=== PATIENT | female | born 1985 | race Caucasian/White ===

== ENCOUNTER → 2018-02-08 | Outpatient (CLI) | payer OTHER ==
[~2018-02-08] MED LIST: CITA20 PO; Celexa40 MG PO; DOCU100 PO; IBUP800 PO; MONT10T PO; Metformin HCl500 MG PO; PROM25 PO; Verotin-Gr Cap1 EACH PO
[2018-02-10 15:08] LABS: HPV 16 Negative (Negative); HPV 18 Negative (Negative); HPV OTHER HR TYPES Negative (Negative)
== END ==
LOC: LAB SHORT 17:03 → LAB 17:03
PROVIDERS: Nurse Practitioner Family
DX: Z00.00 Encounter for general adult medical examination without abnormal findings (principal)
CPT/HCPCS: 87624; G0145

== ENCOUNTER 2022-11-21 07:46 | Day surgery (SDC) | payer OTHER ==
[~2022-11-21] VITALS: Ht 170.2 cm; Wt 110.0 kg
[2022-11-21] MEDS ORDERED: BUSP10 PO (08:31)
[2022-11-21] MEDS ORDERED: CELEXA40 M1 PO (08:31)
--- NOTE | 2022-11-21 08:53 | NUR ---
11/21/22 0853 JAYY QUINTANA PT REPORTS ANXIETY. VSS. PRE-OP TEACHING COMPLETED. CALL LIGHT WITHIN REACH.
--- NOTE | 2022-11-21 10:12 | NUR ---
11/21/22 1012 Loren Del Real 1MG OF EPI (1MG/ML) ADDED TO THE FIRST BAG OF FLUIDS FOR IRRIGATION. 20 ML OF ROPIVACAINE 0.5% MIXED AND VERIFIED WITH 0.1ML OF EPI (1MG/ML) TO MAKE ROPIVACAINE 0.5% WITH EPI 1:200,000 FOR INJECTION AT THE OPSITE BY DR. BHAGAT. 10ML INJECTED. 3 SMALL SCABS NOTED ON OPERATIVE LEG. DR BHAGAT NOTIFIED. OK TO PROCEED.
--- NOTE | 2022-11-21 11:42 | NUR ---
11/21/[address] IN TO SPEAK WITH PT AND REGARDING SURGERY. SHOWED PT PICTURES AND GAVE EXPENATION. PT AT BEDSIDE. PT EATING AND DRINKING W/O DIFFICULTY.
[2022-11-21 11:52] VITALS: BP 158/107
== END 2022-11-21 12:11 | disposition home or self-care (01) ==
LOC: ORSCSDS 07:46
PROVIDERS: Orthopaedic Surgery
PROC: 0SBD4ZZ Excision of Left Knee Joint, Percutaneous Endoscopic Approach (ICD-10-PCS; principal; 2022-11-21 09:15)
DX: S83.232A Complex tear of medial meniscus, current injury, left knee, initial encounter (principal); F41.9 Anxiety disorder, unspecified; F32.A Depression, unspecified; Z79.899 Other long term (current) drug therapy; E66.9 Obesity, unspecified; Z68.38 Body mass index [BMI] 38.0-38.9, adult
CPT/HCPCS: A9270; J0171; J0690; J1885; J2704; J2795; J3010; J7120

== ENCOUNTER 2023-01-02 11:34 | Day surgery (SDC) | payer OTHER ==
[~2023-01-02] VITALS: Ht 170.2 cm; Wt 108.7 kg
[~2023-01-02 11:34] MED LIST changes: +BUSP10 PO; +CELEXA40 M1 PO
[2023-01-02] MEDS ORDERED: DULO60 (12:17)
--- NOTE | 2023-01-02 13:18 | NUR ---
01/02/23 1318 Loren Del Real 10ML OF ROPIVACAINE 0.5% MIXED AND VERIFIED WITH 0.05ML OF EPI (1MG/ML) TO MAKE ROPIVACAINE 0.5% WITH EPI 1:200,000 [facility] 1MG OF EPI (1MG/ML) ADDED TO THE FIRST BAG OF FLUID USED FOR IRRIGATION AT THE OPSITE BY DR BHAGAT.
[2023-01-02 14:18] VITALS: BP 112/75
--- NOTE | 2023-01-02 14:59 | NUR ---
01/02/23 1459 Cyndee Choudhury 1450 IV REMOVED CANNULA INTACT, PT FLETCHER WELL. IV SITE WNL. PT DENIES NAUSEA AND REPORTS PAIN 3/10 WHICH IS A TOLERABLE LEVEL FOR HER. PT EXPRESSES READINESS TO GO HOME
== END 2023-01-02 14:56 | disposition home or self-care (01) ==
LOC: ORSCSDS 11:34
PROVIDERS: Orthopaedic Surgery
PROC: 0SBC4ZZ Excision of Right Knee Joint, Percutaneous Endoscopic Approach (ICD-10-PCS; principal; 2023-01-02 12:45)
DX: S83.231A Complex tear of medial meniscus, current injury, right knee, initial encounter (principal); E66.9 Obesity, unspecified; Z68.38 Body mass index [BMI] 38.0-38.9, adult; G47.33 Obstructive sleep apnea (adult) (pediatric); F41.9 Anxiety disorder, unspecified; F32.A Depression, unspecified; Z79.899 Other long term (current) drug therapy
CPT/HCPCS: 82947; A9270; J0171; J0690; J1100; J2250; J2405; J2704; J2795; J3010; J7120

== ENCOUNTER → 2023-04-24 | Outpatient (CLI) | payer OTHER ==
[~2023-04-24] MED LIST changes: +DULO60
[2023-05-07 04:03] LABS: HPV GENOTYPE 16 Not Detected; HPV GENOTYPE 18 Not Detected; HPV HIGH RISK Not Detected; HPV SOURCE Cervical
== END ==
LOC: LAB 16:23 → LAB SHORT 16:23
PROVIDERS: Obstetrics & Gynecology
DX: Z01.419 Encounter for gynecological examination (general) (routine) without abnormal findings (principal)
CPT/HCPCS: 87624; G0123

== ENCOUNTER → 2023-04-24 | Outpatient (CLI) | payer OTHER ==
[2023-04-25 10:48] LABS: Candida species (DNA Probe) Negative (NEGATIVE); G. vaginalis (DNA Probe) Negative (NEGATIVE); T. vaginalis (DNA Probe) Negative (NEGATIVE)
== END ==
LOC: LAB 23:17 → LAB SHORT 23:17
PROVIDERS: Obstetrics & Gynecology
DX: N89.8 Other specified noninflammatory disorders of vagina (principal)
CPT/HCPCS: 87480; 87510; 87660

== ENCOUNTER 2023-11-09 08:24 | Day surgery (SDC) | payer OTHER ==
[~2023-11-09] VITALS: Ht 170.2 cm; Wt 95.4 kg
[2023-11-09] VITALS (11 sets, daily range): BP systolic 118–132; BP diastolic 78–87
[~2023-11-09 08:24] MED LIST changes: +ASHWAGANDHA300 MG PO; +CeFAZolin Sodium 2,000 MG in NS 100 ML IV SCH; +Lactated Ringer's 1,000 ML IV SCH; +METF500C PO; +WEGOVY0.5 MG/0.5 SC; +propofoL 20 ML IV ONE
[2023-11-09] MEDS ORDERED: LOSA25 PO (09:19)
[2023-11-09] MEDS ORDERED: Bupivacaine 0.5% HCl 5 MG/ML 30MLVIAL ONE (09:39)
[2023-11-09] MEDS ORDERED: Midazolam HCl 1MG / ML 2ML Vial IV ONE (10:05)
[2023-11-09] MEDS ORDERED: propofoL 20 ML IV ONE (10:20)
[2023-11-09] MEDS ORDERED: FentaNYL Citrate 50 MCG/ML 2 ML Injection ONE (10:20)
[2023-11-09] MEDS ORDERED: HYDROmorphone HCl/Pf 1MG SYR ONE (10:37)
[2023-11-09] MEDS ORDERED: Bupivacaine 0.5% Inj 10 ML Vial ONE (10:55)
[2023-11-09] MEDS ORDERED: Metoclopramide HCl 5MG / ML 2ML Vial ONE (11:00)
[2023-11-09] MEDS ORDERED: Ondansetron HCl 2 MG / ML 2ML Vial ONE (11:00)
[2023-11-09] MEDS ORDERED: ePHEDrine Sulfate 50 MG/ML 1ML Injection ONE (11:05)
[2023-11-09] MEDS ORDERED: Atropine Sulfate 0.4 MG/1 ML Vial ONE (11:05)
[2023-11-09] MEDS ORDERED: Rocuronium Bromide 10 MG/ML 5ML Injection IV ONE (11:55)
[2023-11-09] MEDS ORDERED: OxyCODONE HCL 5 MG TAB PO PRN ×2 (12:40→12:45)
[2023-11-09] MEDS ORDERED: Sugammadex Sodium 200 MG/2ML SDV (100 MG/ML) ONE (12:41)
[2023-11-09] MEDS ORDERED: DiphenhydrAMINE HCL 25 MG Cap PO PRN (12:45)
[2023-11-09] MEDS ORDERED: HYDROmorphone HCl/Pf 1MG SYR IV PRN (12:45)
[2023-11-09] MEDS ORDERED: Simethicone 80 MG Chew PO PRN (12:45)
[2023-11-09] MEDS ORDERED: Lactated Ringer's 1,000 ML IV SCH (12:50)
[2023-11-09] MEDS ORDERED: Naloxone HCl 0.4MG / ML 1ML Vial IV PRN (12:50)
[2023-11-09] MEDS ORDERED: Metoclopramide HCl 5MG / ML 2ML Vial IV PRN (12:50)
[2023-11-09] MEDS ORDERED: Ondansetron HCl 2 MG / ML 2ML Vial IV PRN (12:50)
--- NOTE | 2023-11-09 15:47 | NUR ---
DISCHARGE: DC INSTRUCTIONS GIVEN, VERBALIZED UNDERSTANDING, PT HAS VOIDED WITHOUT DIFFICULTY, TOLERABLE PAIN CONTROL W/ PO PAIN MEDS, TOLERATED REGULAR FOOD WELL, AMBULATING WITHOUT DIFFICULTY, DC'D HOME W/ SIG. OTHER, BELONGINGS GIVEN TO PT AND SIG. OTHER.
[2023-11-09] MEDS ORDERED: Ibuprofen 400 MG Tab PO SCH (16:00)
[2023-11-09] MEDS ORDERED: MetFORMIN HCl 500 mg PO SCH (17:00)
[2023-11-09] MEDS ORDERED: Ketorolac Tromethamine 30mg Vial IV SCH (18:00)
[2023-11-10] MEDS ORDERED: Polyethylene Glycol 3350 17 gm PO SCH (09:00)
[2023-11-10] MEDS ORDERED: Enoxaparin 40 MG/0.4 ML SYR SC SCH (09:00)
[2023-11-10] MEDS ORDERED: BusPIRone HCl 10 MG Tab PO SCH (09:00)
[2023-11-10] MEDS ORDERED: DULoxetine HCL 60 MG Capsule DR PO SCH (09:00)
[2023-11-10] MEDS ORDERED: Losartan Potassium 25 MG Tab PO SCH (09:00)
== END 2023-11-09 15:49 | disposition home or self-care (01) ==
LOC: ORSCMMR 08:24 → ORD 10:30 → SURS 13:14 → ORSCMMR 15:49
PROVIDERS: Obstetrics & Gynecology
PROC: 0UT7FZZ Resection of Bilateral Fallopian Tubes, Via Natural or Artificial Opening With Percutaneous Endoscopic Assistance (ICD-10-PCS; principal; 2023-11-09 10:30)
PROC: 0UT9FZZ Resection of Uterus, Via Natural or Artificial Opening With Percutaneous Endoscopic Assistance (ICD-10-PCS; principal; 2023-11-09 10:30)
DX: N93.8 Other specified abnormal uterine and vaginal bleeding (principal); N94.6 Dysmenorrhea, unspecified; E28.2 Polycystic ovarian syndrome; I10 Essential (primary) hypertension; E11.9 Type 2 diabetes mellitus without complications; J45.909 Unspecified asthma, uncomplicated; Z79.84 Long term (current) use of oral hypoglycemic drugs; Z79.899 Other long term (current) drug therapy; E66.9 Obesity, unspecified; Z68.33 Body mass index [BMI] 33.0-33.9, adult
CPT/HCPCS: 82947; 86850; 86900; 86901; 88307; A9270; J0461; J0690; J1170; J2250; J2405; J2704; J2765; J3010; J7120

== ENCOUNTER 2024-05-27 09:03 | Day surgery (SDC) | payer OTHER ==
[~2024-05-27] VITALS: Ht 170.2 cm; Wt 110.5 kg
[~2024-05-27 09:03] MED LIST changes: -CeFAZolin Sodium 2,000 MG in NS 100 ML IV SCH; +EPINEPhrine HCl 1 MG/ML 1ML Amp ONE; +LOSA25 PO; -Lactated Ringer's 1,000 ML IV SCH; +Ropivacaine 0.5% HCL/PF 5 MG/ML 30ML Vial ONE; -propofoL 20 ML IV ONE
[2024-05-27] MEDS ORDERED: Ketorolac Tromethamine 30mg Vial ONE (10:08)
[2024-05-27] MEDS ORDERED: PROG100 PO (10:11)
[2024-05-27] MEDS ORDERED: STEGLATRO5 MG PO (10:11)
[2024-05-27] MEDS ORDERED: propofoL 0 ML IV ONE (10:14)
[2024-05-27] MEDS ORDERED: LOSARTAN POTASS50 M1 PO (10:14)
[2024-05-27] MEDS ORDERED: MULVITA PO (10:14)
[2024-05-27] MEDS ORDERED: Lactated Ringer's 1,000 ML IV ONE ×2 (10:21→14:28)
[2024-05-27] MEDS ORDERED: CeFAZolin Sodium 2,000 MG VIAL ONE (10:26)
[2024-05-27] MEDS ORDERED: Sugammadex Sodium 200 MG/2ML SDV (100 MG/ML) ONE (10:52)
[2024-05-27] MEDS ORDERED: FentaNYL Citrate 50 MCG/ML 2 ML Injection ONE (10:52)
[2024-05-27] MEDS ORDERED: propofoL 20 ML IV ONE (10:52)
[2024-05-27] MEDS ORDERED: Midazolam HCl 1MG / ML 2ML Vial ONE (10:52)
[2024-05-27] MEDS ORDERED: Bupivacaine 0.5% HCl 5 MG/ML 30MLVIAL ONE (10:55)
[2024-05-27] MEDS ORDERED: Rocuronium Bromide 10 MG/ML 5ML Injection IV ONE (10:57)
[2024-05-27] MEDS ORDERED: Ondansetron HCl 2 MG / ML 2ML Vial ONE (10:57)
[2024-05-27] MEDS ORDERED: Dexamethasone Sod Phos 10 MG/ML 1ML VIAL ONE (10:57)
--- NOTE | 2024-05-27 11:31 | NUR ---
05/27/24 1131 Sharita Horan TIME OUT PERFORMED AT BEDSIDE WITH DR GA AT 1117 PRIOR TO POPLITEAL NERVE BLOCK. PT PLACED ON 2L O2 VIA N/C AND SPO2 MONITOR IN PLACE. NERVE BLOCK STARTED AT 1120 AND ENDED AT 1121. PT TOLERATED PROCEDURE WELL.
[2024-05-27] MEDS ORDERED: ePHEDrine Sulfate 50 MG/ML 1ML Injection ONE (13:13)
--- NOTE | 2024-05-27 14:06 | NUR ---
05/27/24 1406 Jt Richardson RECIEVED REPORT FROM [facility] TRAN. MONITORING PT'S BP. FLUIDS OPEN AND INCREASED HEIGHT OF IV POLE. DENIES DIZZINESS. BP 98/70 INCREASED TO 104/61. PT EXPRESSING READINESS TO GET DRESSED AND GO HOME. PT CALM AND COOPERATIVE. PT WILL BE DISCHARGED AFTER IV FLUIDS 1L COMPLETED AND VS STABLE. PT DENIES NAUSEA AND PAIN.
[2024-05-27 14:12] VITALS: BP 108/71
== END 2024-05-27 14:45 | disposition home or self-care (01) ==
LOC: ORSCSDS 09:03
PROVIDERS: Podiatrist Foot & Ankle Surgery
PROC: 0LSP0ZZ Reposition Left Lower Leg Tendon, Open Approach (ICD-10-PCS; principal; 2024-05-27 10:45)
PROC: 0LQP0ZZ Repair Left Lower Leg Tendon, Open Approach (ICD-10-PCS; principal; 2024-05-27 10:45)
DX: M76.61 Achilles tendinitis, right leg (principal); I10 Essential (primary) hypertension; F41.9 Anxiety disorder, unspecified; F32.A Depression, unspecified; E66.9 Obesity, unspecified; Z68.38 Body mass index [BMI] 38.0-38.9, adult; Z79.899 Other long term (current) drug therapy
CPT/HCPCS: 82947; J0171; J0690; J1100; J1885; J2250; J2405; J2704; J2795; J3010

== ENCOUNTER → 2024-08-08 | Outpatient (CLI) | payer OTHER ==
[~2024-08-08] MED LIST changes: -EPINEPhrine HCl 1 MG/ML 1ML Amp ONE; +LOSARTAN POTASS50 M1 PO; +MULVITA PO; +PROG100 PO; -Ropivacaine 0.5% HCL/PF 5 MG/ML 30ML Vial ONE; +STEGLATRO5 MG PO
[2024-08-08 10:50] LABS: BASOPHILS ABSOLUTE AUTO 0.03 K/mm3 (0.00-0.23); BASOPHILS PERCENT AUTO 0 % (0-2); EOSINOPHILS ABSOLUTE AUTO 0.25 K/mm3 (0.00-0.68); EOSINOPHILS PERCENT AUTO 3 % (0-6); Hemoglobin 15.4 g/dL (11.5-16.0); IMMATURE GRAN ABSOLUTE AUTO 0.03 K/mm3 (0.00-0.10); IMMATURE GRAN PERCENT AUTO 0 % (0-1); LYMPHOCYTES ABSOLUTE AUTO 2.36 K/mm3 (0.84-5.20); LYMPHOCYTES PERCENT AUTO 25 % (21-46); MONOCYTES PERCENT AUTO 7 % (4-13); Mean Corpuscular HGB 27.6 pg (26.0-34.0); Mean Corpuscular HGB Conc 34.2 g/dL (31.5-36.5); Mean Corpuscular Volume 81 fL (80-100); NEUTROPHILS ABSOLUTE AUTO 6.02 K/mm3 (1.96-9.15); NEUTROPHILS PERCENT AUTO 65 % (41-73); RDW Coefficient Variation 12.7 % (11.7-14.2); Red Blood Cell Count 5.57 M/mm3 (3.80-5.20); White Blood Cell Count 9.29 K/mm3 (4.00-11.30)
[2024-08-08 10:53] LABS: Platelet Count 124 K/mm3 (150-400)
[2024-08-08 10:58] LABS: Albumin, Blood 3.7 g/dL (3.4-5.0); Albumin/Globulin Ratio 0.9 (0.8-1.8); Bilirubin, Total 0.5 mg/dL (0.1-1.0); Bun/Creatinine Ratio 20.7 (12.0-20.0); Calcium, Blood 9.2 mg/dL (8.5-10.1); Creatinine, Blood 0.82 mg/dL (0.40-1.00); Potassium, Blood 4.2 mmol/L (3.5-5.5); Total Protein, Blood 7.7 g/dL (6.4-8.2)
== END | disposition home or self-care (01) ==
LOC: LAB SHORT 10:41 → LAB 10:41
PROVIDERS: Family Medicine
DX: R10.9 Unspecified abdominal pain (principal)
CPT/HCPCS: 80053; 85025

== ENCOUNTER → 2025-04-21 | Outpatient (CLI) | payer OTHER ==
[2025-04-21 10:10] LABS: BASOPHILS ABSOLUTE AUTO 0.04 K/mm3 (0.00-0.23); BASOPHILS PERCENT AUTO 0 % (0-2); EOSINOPHILS ABSOLUTE AUTO 0.18 K/mm3 (0.00-0.68); EOSINOPHILS PERCENT AUTO 2 % (0-6); Hematocrit 43.1 % (33.0-51.0); Hemoglobin 14.7 g/dL (11.5-16.0); IMMATURE GRAN ABSOLUTE AUTO 0.04 K/mm3 (0.00-0.10); IMMATURE GRAN PERCENT AUTO 0 % (0-1); LYMPHOCYTES ABSOLUTE AUTO 2.28 K/mm3 (0.84-5.20); LYMPHOCYTES PERCENT AUTO 20 % (21-46); MONOCYTES ABSOLUTE AUTO 0.68 K/mm3 (0.16-1.47); MONOCYTES PERCENT AUTO 6 % (4-13); Mean Corpuscular HGB Conc 34.1 g/dL (31.5-36.5); Mean Corpuscular Volume 80 fL (80-100); NEUTROPHILS ABSOLUTE AUTO 8.09 K/mm3 (1.96-9.15); NEUTROPHILS PERCENT AUTO 71 % (41-73); NRBC ABSOLUTE 0.00 K/mm3 (0.00-0.02); NRBC Auto 0.0 /100 WBC (0.0-0.2); Platelet Count 188 K/mm3 (150-400); RDW Coefficient Variation 13.4 % (11.7-14.2); RDW Standard Deviation 38.7 fL (35.1-46.3)
[2025-04-21 10:19] LABS: Alanine Aminotransfer (ALT/SGP 29.0 U/L (12-78); Albumin, Blood 3.7 g/dL (3.4-5.0); Albumin/Globulin Ratio 1.0 (0.8-1.8); Anion Gap 12.0 mmol/L (6-16); Aspartate Aminotrans (AST/SGOT 15.0 U/L (12-37); Bilirubin, Total 0.4 mg/dL (0.1-1.0); Blood Urea Nitrogen 15.0 mg/dL (8-24); CO2, Blood 30.0 mmol/L (21-32); Calcium, Blood 9.2 mg/dL (8.5-10.1); Chloride, Blood 100.0 mmol/L (98-108); Creatinine, Blood 0.88 mg/dL (0.40-1.00); Globulin, Blood 3.8 g/dL (2.2-4.0); Glucose, Blood 83.0 mg/dL (70-99); Potassium, Blood 3.8 mmol/L (3.5-5.5); Sodium, Blood 138.0 mmol/L (136-145); Total Protein, Blood 7.5 g/dL (6.4-8.2)
== END ==
LOC: LAB 10:05 → LAB SHORT 10:05
PROVIDERS: Family Medicine
DX: R10.9 Unspecified abdominal pain (principal)
CPT/HCPCS: 80053; 85025